=== PATIENT | female | born 1960 | race Caucasian/White ===

== ENCOUNTER → 2019-03-08 | Outpatient (CLI) | payer BC ==
--- NOTE | 2019-03-08 09:15 | KCIC ---
EXAM: Cervical spine MRI without contrast. HISTORY: Pain. TECHNIQUE: Multiplanar, multisequence magnetic resonance imaging of the cervical spine was performed without contrast. COMPARISON: Radiographs dated 02/23/2019. FINDINGS: There is minimal anterolisthesis of C3 on C4 and retrolisthesis of C6 on C7. There is also minimal anterolisthesis at the upper thoracic levels. There is degenerative endplate remodeling and osteophytosis primarily at and C6-C7. No suspicious osseous lesion is seen. There is no acute or subacute fracture. No spinal cord lesion is seen. The skull base and posterior fossa are unremarkable. At C2-C3, there is no stenosis. At C3-C4, there is a posterior central disc protrusion which deforms the central ventral aspect of the spinal cord. There is left posterior lateral predominant endplate remodeling. There is minimal left greater than right facet arthropathy. There is no stenosis. At C4-C5, there is a posterior central disc protrusion which deforms the central ventral aspect of the spinal cord. There is minimal right greater than left facet arthropathy. There is no stenosis. At C5-C6, there is a shallow broad-based posterior central disc protrusion and annular tear which slightly effaces the ventral thecal sac. There is minimal endplate remodeling. There is minimal right greater than left facet arthropathy. There is no stenosis. At C6-C7, there is a shallow broad-based posterior central disc protrusion superimposed on endplate osteophytosis. There is mild bilateral facet arthropathy. There is bilateral uncovertebral arthropathy. There is mild bilateral foraminal stenosis. There is effacement of the ventral thecal sac without significant central canal stenosis. There is a tiny dilated nerve root sheath cyst within the right neural foramen, an incidental finding. There is similar dilated nerve root sheath cysts within the bilateral neural foramina at C7-T1. IMPRESSION: Multilevel degenerative change involving the cervical spine, described in detail above. There is slight deformation of the spinal cord at multiple levels without spinal cord signal abnormality or significant central canal stenosis. There is mild bilateral foraminal stenosis at C6-C7. Electronically signed by: Syeda Stewart MD (03/08/2019 9:12 AM) [facility]
== END | disposition home or self-care (01) ==
LOC: KCIC MRI 07:53
PROVIDERS: ATTEND Registered Nurse
DX: M48.02 Spinal stenosis, cervical region (principal); M50.223 Other cervical disc displacement at C6-C7 level
CPT/HCPCS: 72141

== ENCOUNTER → 2019-05-18 | Outpatient (CLI) | payer BC ==
[~2019-05-18] MED LIST: CALC500T30 PO; FEXO180T81 PO; LOSA1TAB2 PO
--- NOTE | 2019-05-18 22:48 | PAIN ---
DATE OF SERVICE: 05/18/2019 INITIAL CONSULTATION FOR PAIN CLINIC CHIEF COMPLAINT: Neck and left upper extremity pain. HISTORY OF PRESENT ILLNESS: This is a 58-year-old female who presents with history of pain in the neck as well as the left upper extremity since about 12/2018, not a result of any specific injury or action that she is aware of, just been getting worse over time. The patient is very active, mostly, is running 5K races and staying very active for most part. Reports that this has slowed her down significantly, she has had significant pain in the left shoulder and arm radiating to the posterior triceps and posterior deltoid and usually to the elbow on the left side as well as with some pain in the left side of the neck with motion as well, but the neck is doing better now. The main complaint is the shoulder and the left arm with activity. The patient reports no loss of motor function, no right-sided symptoms, is intermittent in intensity, changes during the day, worse with activity, worse with repetitive motions with the upper extremity as well and is cramping, burning, aching and it is worse at night also. The patient reports occasionally awakens her from sleep but not every night, does not affect her bowel or bladder control or ability to walk. She has not tried any current therapies rate, any physical therapies or other modalities at this time. The patient is taking Aleve, which does decrease the pain to a moderate extent and she is taking this usually only once daily. The patient rates her disability rating from 0 to 10, 10 being the worst, is a 2 with family and home responsibilities, 4 with recreation, 0 with social activity, 3 with occupation and 0 with sexual behavior, 1 with self-care and 6 with life support activities. The patient did have MRI scan of the cervical spine showing multilevel degenerative change involving the cervical spine with mild bilateral foraminal stenosis at C6-C7 with a shallow broad-based posterior central disk protrusion superimposed endplate osteophytosis, C5-C6 shows shallow broad-based posterior central disk protrusion as well with annular tear at the C5-C6 level and again C6-C7 showing bilateral mild foraminal stenosis. PAST MEDICAL HISTORY: Significant for hearing loss, hypertension and dizziness. PAST SURGICAL HISTORY: Previous surgeries include hysterectomy, lumbar surgery with fusion x 5, right knee surgery, Achilles tendon repair bilaterally, appendectomy and bladder sling. CURRENT MEDICATIONS: Include losartan, calcium and Ama. ALLERGIES: The patient is allergic to PENICILLIN, TETANUS, IMITREX and CODEINE. SOCIAL HISTORY: The patient drinks alcohol occasionally, maybe 8 ounces very rarely. Does not use any tobacco products. Does not use any illegal, illicit or recreational drugs. She is single. 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 REVIEW OF SYSTEMS: The patient's review of systems is positive for those items mentioned in history of present illness. All systems reviewed and otherwise negative. It is complete, full and well documented on the patient's chart. PHYSICAL EXAMINATION: VITAL SIGNS: The patient's blood pressure is 160/91, pulse 51, respirations 18 and temperature 97.9 degrees Fahrenheit. Height is 5 feet 4 inches and weight 169 pounds. GENERAL: The patient is awake, alert, oriented, appropriate and very pleasant demeanor. HEENT: Head shows normocephalic and atraumatic. Extraocular movements are intact and symmetrical. Oral cavity: Mucous membranes are moist and pink. Dentition intact. NECK: Shows anterior throat supple without palpable lymphadenopathy noted. Swallow reflex symmetrical. CHEST: Shows normal on inspection. Breath sounds are clear to auscultation bilaterally. HEART: Shows S1 and S2 clear. No murmurs auscultated. ABDOMEN: Soft, nontender and nondistended. No palpable organomegaly is noted. No rebound or guarding demonstrated. BACK: Shows spine grossly in the midline. Cervical lordotic curvature is maintained as is thoracic or curvature with some flattening of lumbar lordotic curvature with well-healed surgical scar in the lumbar distribution. Cervical paraspinous musculature shows symmetrical on inspection and palpation shows some moderate tenderness diffusely bilaterally but only diffusely without significant radiation but slightly more tender on the left side than the right inferior aspect of the cervical paraspinous musculature into the superior medial trapezius on the left but not the right. The patient has good rotational motion of the cervical spine, both laterally greater than 45 degrees closer to 90 degrees as well as full extension, full forward flexion without increase in pain with any of these rotational motions. EXTREMITIES: The patient's upper extremities show deep tendon reflexes 2+ in biceps, triceps tendons. 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 Bicep and tricep flexion likewise is 4/5, left and 5/5, right. Peripheral pulses are 2+ radial distribution. No peripheral edema is noted. Upper extremities are warm and dry to touch, equal in color and appearance. The patient's shoulder shrug is strong and intact without loss of strength on resistance without reproduction of pain, this is true with abduction of the shoulder to 90 degrees bilaterally as well. SKIN: The patient's skin shows warm and dry, good turgor. No edema. No sores, rashes or bruising. IMPRESSION: 1. This is a 58-year-old female with a history of pain in the base of the neck, left upper extremity. 2. MRI scan of cervical spine as noted. 3. Hypertension. 4. Hearing loss. 5. Arthritis. PLAN: Options were discussed with the patient including conservative medical management, physical therapy, interventional techniques. She would like to pursue with conservative measures at this time. She would like to try some physical therapy, possibly chiropractic treatment as well and we will make those arrangements on her own. We offered to order formal physical therapy. She would like to try some stretching and strengthening exercises and she is looking into chiropractic treatment as well. First, we did discuss potential interventional techniques and she would like to wait on this and try given some conservative measures prior to that. We will have the patient followup at this time on as needed basis once she tried to the modalities. If the pain is still present, we will have her return for reevaluation at that time. JENSEN JOHNSON MD DR: JEFF/cesia JOB#: [id number] / [id number]
== END | disposition home or self-care (01) ==
LOC: PNCL 08:51
PROVIDERS: ATTEND Anesthesiology
DX: M79.602 Pain in left arm (principal); M54.2 Cervicalgia; M19.90 Unspecified osteoarthritis, unspecified site; I10 Essential (primary) hypertension; Z90.710 Acquired absence of both cervix and uterus; Z88.0 Allergy status to penicillin; Z88.5 Allergy status to narcotic agent; Z88.8 Allergy status to other drugs, medicaments and biological substances; Z72.89 Other problems related to lifestyle
CPT/HCPCS: G0463

== ENCOUNTER → 2021-02-12 | Outpatient (CLI) | payer BC ==
--- NOTE | 2021-02-12 11:42 | KCIC ---
DG VIDEO SWALLOW STUDY History:Reason: Dysphagia, hiatal hernia, reflux. / Spl. Instructions: 2 min 1 sec fl., 16 images / H istory: Comparison studies: None. Technique: Esophagram was performed utilizing double contrast upright examination, single contrast pr one examination, and cine evaluation of cervical esophageal swallow function. Findings: Barium swallow was performed without difficulty. Esophageal peristalsis and motility were n ormal. No mucosal abnormalities. Small hiatal hernia. No esophageal diverticulum. Fundus of the stoma ch was unremarkable. The barium tablet passed probably to the stomach. Fluoroscopic time: 2 minutes 1 second Fluoroscopic images: 16 IMPRESSION: 1. Small hiatal hernia. Electronically signed by: Sonu Allen DO (02/12/2021 11:40 AM) [id number]
== END ==
LOC: KCIC 10:17
PROVIDERS: ATTEND Internal Medicine Gastroenterology
DX: K44.9 Diaphragmatic hernia without obstruction or gangrene (principal); R13.10 Dysphagia, unspecified
CPT/HCPCS: 74220